=== PATIENT | female | born 1970 | race Two or more races ===

== ENCOUNTER 2023-09-21 16:05 | Day surgery (SDC) | payer OTHER ==
[~2023-09-21] VITALS: Ht 154.9 cm; Wt 67.6 kg
--- NOTE | 2023-09-21 12:23 | NUR ---
PACIENTE ALERTA Y ORIENTADA X3. PACIENTE REFIERE DOLOR PELVICO Y SANGRADO EXCESIVO COLOR LOCKWOOD BRILLANTE CON COAGULOS DESDE HACEN VARIOS MAY. SE ESTIMAN VITALES Y SE UBICA.
--- NOTE | 2023-09-21 14:02 | NUR ---
SE RECIBE PTE Y SE LE ORIENTA SOBRE TX MEDICO, LA MISMA ENTIENDE Y ACEPTA. SE LE REALIZA MUESTRAS DE JJ BAJO MEDIDAS ASEPTICAS HELGA ORDEN.
[2023-09-21 14:42] LABS: HEMATOCRIT 34.6 % (36.0-45.00); HEMOGLOBIN 11.4 g/dL (12.0-15.00); MEAN CELL VOLUME 82.2 fL (80.00-100.00); MEAN CORPUSCULAR HGB CONC 32.9 g/dl (32.0-36.0); PLATELET COUNT 187 K/uL (150-450); RED CELL DISTRIBUTION WIDTH 16.8 % (11.5-14.5)
[2023-09-21 14:58] LABS: CALCIUM 8.6 mg/dL (8.5-10.1); CREATININE SERUM 0.68 mg/dL (0.55-1.02); GFR 90.51; POTASSIUM 3.56 mEq/L (3.5-5.1)
[~2023-09-21 16:05] MED LIST: 0.9 % SODIUM CHLORIDE 1,000 ML IV STA; COZAAR50 MG PO
[2023-09-21 16:35] LABS: INR 1.02; PARTIAL THROMBOPLASTIN TIME 27.9 SECONDS (22.0-34.0); PROTHROMBIN TIME 10.7 SECONDS (9.0-11.5)
--- NOTE | 2023-09-21 17:23 | NUR ---
PTE ALERTA Y ORIENTADA X3, SE ORIENTA SOBRE PROCESO DE ADMISION Y REFIERE ACEPTAR. SE COLECTAN MUESTRAS DE LAB Y SE COLOCAN IV FLUIDS. PTE PREVIAMENTE CANALIZADA, AREA PATENTE. SE REALIZA EKG Y SE REALIZA CHEST PORTABLE. SE HACE ENTREGA DE ENVASE PARA U/A Y SE ENTREGA. SE HACE ENTREGA DE CONSENTIMIENTO PRE OPERATORIO, PTE LO FIRMA Y SE COLOCA EN EXPEDIENTE CLINICO. SE PREPARA PTE PARA OR.
[2023-09-21] MEDS ORDERED: POVIDONE-IODINE 118 ML BOTT TOP ONE (18:00)
[2023-09-21] MEDS ORDERED: CLINDAMYCIN PHOSPHATE 150 MG/ML (600mg) IV ONE (18:00)
== END 2023-09-21 21:50 | disposition home or self-care (01) ==
LOC: CIR.AMB 16:05 → SEC-K 16:05 → ER 16:05 → CIR.AMB 16:05 → SEC-K 21:50
PROVIDERS: ATTEND Emergency Medicine
DX: N93.8 Other specified abnormal uterine and vaginal bleeding (principal); D25.9 Leiomyoma of uterus, unspecified; I10 Essential (primary) hypertension; Z88.6 Allergy status to analgesic agent; Z88.0 Allergy status to penicillin